=== PATIENT | male | born 1995 | race Caucasian/White ===

== ENCOUNTER 2022-05-17 16:45 | Emergency (ER) | payer SELFPAY ==
[~2022-05-17] VITALS: Ht 167.6 cm; Wt 83.0 kg
[2022-05-17] MEDS ORDERED: TETANUS, DIPHTHERIA, PERTUSSIS VAC/PF 0.5ML (>10YR OLD) IM ONE (17:30)
[2022-05-17] MEDS ORDERED: LIDOCAINE HCL/PF 1% 10 MG/ML 5ML VIAL INFIL ONE (17:30)
[2022-05-17] MEDS ORDERED: IBUPROFEN 600MG TABLET PO ONE (17:30)
[2022-05-17] MEDS ORDERED: BACITRACIN ZINC OINT UDPKT TOP ONE (17:30)
[2022-05-17] MEDS ORDERED: LIDOCAINE HCL/EPINEPHRINE 1%-EPI 1:100,000 20 ML VIAL INFIL ONE (17:30)
[2022-05-17] MEDS ORDERED: LIDOCAINE HCL/EPINEPHRINE 1%-EPI 1:100,000 10 ML VIAL INFIL NR (17:45)
[2022-05-17 17:53] VITALS: BP 144/91
[2022-05-17] MEDS ORDERED: IBUP-2028 MT (18:54)
== END 2022-05-17 19:13 | disposition home or self-care (01) ==
LOC: ER 16:45
DX: S41.112A Laceration without foreign body of left upper arm, initial encounter (principal); W26.8XXA Contact with other sharp object(s), not elsewhere classified, initial encounter; Y93.89 Activity, other specified; Y92.89 Other specified places as the place of occurrence of the external cause; Y99.8 Other external cause status
CPT/HCPCS: 12007; 73090; 90471; 90715; 99283; J3490